=== PATIENT | female | born 1955 | race American Indian/Alaskan Native ===

== ENCOUNTER 2017-10-09 08:27 | Outpatient (CLI) | payer BC ==
--- NOTE | 2017-10-09 15:28 | Mammography Report ---
BILATERAL DIGITAL SCREENING MAMMOGRAM with CAD: 10/09/17 08:27:00 CLINICAL: Routine screening. COMPARISON:10/03/16 FINDINGS: The breasts are heterogeneously dense, which may obscure small masses. No mass, architectural distortion or suspicious calcifications. IMPRESSION: No mammographic evidence of malignancy. BI-RADS CATEGORY: 1 - - Negative RECOMMENDATION: Routine mammographic screening in one year. COMMENT: Patient follow-up letters are generated by our depict application.
== END 2017-10-09 08:28 | disposition home or self-care (01) ==
LOC: SPVWC 08:27
PROVIDERS: ATTEND Internal Medicine
DX: Z12.31 Encounter for screening mammogram for malignant neoplasm of breast (principal); Z87.891 Personal history of nicotine dependence
CPT/HCPCS: 77067; G0202

== ENCOUNTER 2018-10-29 09:52 | Outpatient (CLI) | payer BC ==
--- NOTE | 2018-10-29 14:03 | Mammography Report ---
BILATERAL DIGITAL SCREENING MAMMOGRAM with CAD: 10/29/18 09:52:00 CLINICAL: Routine screening. COMPARISON:10/09/17 FINDINGS: The breasts are heterogeneously dense, which may obscure small masses. No mass, architectural distortion or suspicious calcifications. IMPRESSION: No mammographic evidence of malignancy. BI-RADS CATEGORY: 1 - - Negative RECOMMENDATION: Routine mammographic screening in one year. COMMENT: Patient follow-up letters are generated by our [employer] application.
== END 2018-10-29 09:53 | disposition home or self-care (01) ==
LOC: SPVWC 09:52
PROVIDERS: ATTEND Internal Medicine
DX: Z12.31 Encounter for screening mammogram for malignant neoplasm of breast (principal); Z87.891 Personal history of nicotine dependence
CPT/HCPCS: 77067

== ENCOUNTER 2019-11-22 08:06 | Outpatient (CLI) | payer BC ==
--- NOTE | 2019-11-22 09:54 | Mammography Report ---
DIGITAL SCREENING MAMMOGRAM WITH CAD, 11/22/2019 INDICATION: Routine screening mammography. TECHNIQUE: Digital bilateral 2D mammography was obtained in the craniocaudal and mediolateral obliq ue projections. This examination was interpreted with the benefit of Computer-Aided Detection analysi s. COMPARISON: 11/29/2018 and mammograms going back to 10/01/2015 FINDINGS: Breast Density: The breasts are heterogeneously dense, which may obscure small masses. A right inner asymmetry on the CC view requires additional imaging. No architectural distortion or mitchell spicious calcifications of the right breast. There is no evidence of dominant mass, suspicious calcif ications or architectural distortion in the left breast. IMPRESSION: Right asymmetry requiring additional imaging. Recommend recall for a right spot compressi on CC view and right breast ultrasound if needed. Follow up recommendation: Special View: Spot Category 0: Incomplete. Needs additional imaging evaluation and/or prior mammograms for comparison. A "normal" or negative report should not discourage follow up or biopsy of a clinically significant f inding. A written summary of these findings will be mailed to the patient. The patient will be entered into a mammography reporting system which will generate a reminder letter for the patient's next appointmen t at the appropriate interval. The [employer] recommends yearly mammograms starting at age 40 and continuing as l barbara as a woman is in good health. Breast MRI is recommended for women with an approximate 20-25% or greater lifetime risk of breast cancer, including women with a strong family history of breast or ova bill cancer or who have been treated for Hodgkin's disease. Signer Name: Rick Colby MD Signed: 11/22/2019 9:50 AM Workstation Name: [id number]
== END 2019-11-22 08:07 | disposition home or self-care (01) ==
LOC: SPVWC 08:06
PROVIDERS: ATTEND Internal Medicine
DX: Z12.31 Encounter for screening mammogram for malignant neoplasm of breast (principal)
CPT/HCPCS: 77067

== ENCOUNTER 2019-12-13 08:47 | Outpatient (CLI) | payer BC ==
--- NOTE | 2019-12-13 10:01 | Mammography Report ---
DIGITAL DIAGNOSTIC MAMMOGRAM WITH CAD, 12/13/2019 INDICATION: Recall for asymmetry. ABNORMAL MAMMOGRAM TECHNIQUE: Digital right mammographic imaging was performed. This examination was interpreted with the benefit of Computer-aided Detection analysis. COMPARISON: 11/22/2019 FINDINGS: Breast Density: The breasts are heterogeneously dense, which may obscure small masses. Additional right mammographic views were performed and are negative. IMPRESSION: No mammographic evidence of malignancy. Follow up recommendation: Routine yearly BI-RADS Category 1: Negative. A "normal" or negative report should not discourage follow up or biopsy of a clinically significant f inding. A written summary of these findings will be mailed to the patient. The patient will be entered into a mammography reporting system which will generate a reminder letter for the patient's next appointmen t at the appropriate interval. According to the [employer], yearly mammograms are recommended starting at age 40 and continuing as long as a woman is in good health. Breast MRI is recommended for women with an anju roximately 20-25% or greater lifetime risk of breast cancer, including women with a strong family his tory of breast or ovarian cancer and women who have been treated for Hodgkin's disease. Signer Name: Rick Colby MD Signed: 12/13/2019 9:56 AM Workstation Name: [id number]
== END 2019-12-13 08:48 | disposition home or self-care (01) ==
LOC: SPVWC 08:47
PROVIDERS: ATTEND Internal Medicine
DX: R92.8 Other abnormal and inconclusive findings on diagnostic imaging of breast (principal)

== ENCOUNTER 2020-12-19 15:19 | Outpatient (CLI) | payer MEDICARE ==
--- NOTE | 2020-12-19 15:59 | Mammography Report ---
BILATERAL DIGITAL SCREENING MAMMOGRAM WITH CAD HISTORY: Screening mammogram. TECHNIQUE: Routine digital mammographic imaging performed. This examination was interpreted with chandan dumont benefit of Computer-aided Detection analysis. COMPARISON: 12/13/2019, 11/22/2019, 10/29/2018, 10/09/2017. FINDINGS: Breast Density: scattered fibroglandular appearance of the breast tissue. Digital CC and MLO views demonstrate no mammographic evidence of malignancy. IMPRESSION: No mammographic evidence of malignancy. If the clinical examination remains stable, recommend bilate ral mammogram in approximately one year. BIRADS 1: Negative. FURTHER INFORMATION: According to the [employer], yearly mammograms are recommend ed starting at age 40 and continuing as long as a woman is in good health. Clinical Breast Exams shou ld be part of a periodic health exam-about every 3 years for women in their 20s and 30s and every yea r for women 40 and over. Breast self exam is an option for women starting in their 20s. Any breast ch mandy noted on a breast self exam should be reported promptly to the patient's healthcare provider. Br east MRI is recommended for women with an approximately 20-25% or greater lifetime risk of breast can cer, including women with a strong family history of breast or ovarian cancer and women who have been treated for Hodgkin's disease. A negative Mammography report should not discourage follow up or biopsy of a clinically significant f inding and/or abnormality. Dense breast tissue may obscure small neoplasms. The patient will be entered into a reminder system with a target due date for the next screening mamm ogram. Signer Name: Anurag Thomas MD Signed: 12/19/2020 3:54 PM Workstation Name: [id number]
== END 2020-12-19 15:20 | disposition home or self-care (01) ==
LOC: SPVWC 15:19
PROVIDERS: ATTEND Internal Medicine
DX: Z12.31 Encounter for screening mammogram for malignant neoplasm of breast (principal)
CPT/HCPCS: 77067

== ENCOUNTER 2021-12-24 15:20 | Outpatient (CLI) | payer MEDICARE ==
--- NOTE | 2021-12-26 15:20 | Mammography Report ---
DIGITAL SCREENING MAMMOGRAM WITH CAD, 12/24/2021 CLINICAL INFORMATION / INDICATION: Routine screening mammography. SCREENING MAMMO Z12.31 TECHNIQUE: Digital bilateral 2D mammography was obtained in the craniocaudal and mediolateral obliqu e projections. This examination was interpreted with the benefit of Computer-Aided Detection analysis . COMPARISON: 12/19/2020 and 11/22/2019 FINDINGS: Breast Density: The breasts are heterogeneously dense, which may obscure small masses. No dominant mass, suspicious calcifications, or architectural distortion in either breast. IMPRESSION: No mammographic evidence of malignancy. Follow up recommendation: Routine yearly BI-RADS Category 1: NEGATIVE A "normal" or negative report should not discourage follow up or biopsy of a clinically significant f inding. A written summary of these findings will be mailed to the patient. The patient will be entered into a mammography reporting system which will generate a reminder letter for the patient's next appointmen t at the appropriate interval. The [employer] recommends yearly mammograms starting at age 40 and continuing as l barbara as a woman is in good health. Breast MRI is recommended for women with an approximate 20-25% or greater lifetime risk of breast cancer, including women with a strong family history of breast or ova bill cancer or who have been treated for Hodgkin's disease. Signer Name: Buzz Quinones MD Signed: 12/26/2021 3:13 PM Workstation Name: [id number]
== END 2021-12-24 15:21 | disposition home or self-care (01) ==
LOC: SPVWC 15:20
PROVIDERS: ATTEND Internal Medicine
DX: Z12.31 Encounter for screening mammogram for malignant neoplasm of breast (principal)
CPT/HCPCS: 77067